=== PATIENT | male | born 1960 | race Caucasian/White ===

== ENCOUNTER → 2020-10-06 | Outpatient (CLI) | payer OTHER ==
[~2020-10-06] MED LIST: PROTONIX40 MG PO
== END ==
LOC: KOH-I 10:50
DX: Z12.2 Encounter for screening for malignant neoplasm of respiratory organs (principal); F17.210 Nicotine dependence, cigarettes, uncomplicated
CPT/HCPCS: 71271

== ENCOUNTER → 2021-09-26 | Outpatient (CLI) | payer OTHER | LOC: RAD 14:33 | DX: Z03.818 Encounter for observation for suspected exposure to other biological agents ruled out (principal); U09.9 Post COVID-19 condition, unspecified | CPT/HCPCS: 71046 ==